=== PATIENT | male | born 1960 | race Caucasian/White ===

== ENCOUNTER 2022-09-18 06:00 | Outpatient (RCR) | payer OTHER, SELFPAY | END 2022-09-19 23:59 | disposition home or self-care (01) | LOC: TPT 06:00 | PROVIDERS: Visit Provider Nurse Practitioner Family | DX: Z73.89 Other problems related to life management difficulty (principal) | CPT/HCPCS: 97163 ==

== ENCOUNTER 2022-09-20 06:00 | Outpatient (RCR) | payer OTHER, SELFPAY | END 2022-10-20 23:59 | disposition home or self-care (01) | LOC: TPT 06:00 | PROVIDERS: Visit Provider Nurse Practitioner Family | DX: M25.511 Pain in right shoulder (principal); M54.2 Cervicalgia; Z73.89 Other problems related to life management difficulty | CPT/HCPCS: 97110; 97140; 97164 ==

== ENCOUNTER 2022-10-21 06:00 | Outpatient (RCR) | payer OTHER, SELFPAY | END 2022-11-20 23:59 | disposition home or self-care (01) | LOC: TPT 06:00 | PROVIDERS: Visit Provider Nurse Practitioner Family | DX: M25.511 Pain in right shoulder (principal); M54.2 Cervicalgia | CPT/HCPCS: 97110; 97140 ==

== ENCOUNTER 2022-11-21 06:00 | Outpatient (RCR) | payer OTHER, SELFPAY | END 2022-12-18 23:59 | disposition home or self-care (01) | LOC: TPT 06:00 | PROVIDERS: Visit Provider Nurse Practitioner Family | DX: M25.511 Pain in right shoulder (principal); M54.2 Cervicalgia | CPT/HCPCS: 97110; 97140 ==

== ENCOUNTER 2023-03-06 05:59 | Outpatient (CLI) | payer OTHER, SELFPAY ==
--- NOTE | 2023-03-06 | US_ITS ---
WS: [id number] RIGHT UPPER QUADRANT ULTRASOUND HISTORY: HEP C COMPARISON: None available. Liver: 16.2 cm in length. Moderate coarse echotexture throughout the liver. No mass identified. The e ntire liver is not well identified due to the attenuation and density of the liver. No bile duct dila tation. Portal Vein: Normal hepatopetal flow with monophasic waveform. Gallbladder: Normally distended gallbladder with no stones or wall thickening. CBD: 0.3 cm Pancreas: Portions of the head and tail are obscured. The body is negative. Right kidney: 9.4 cm in length. Normal size and echogenicity. No hydronephrosis or mass. Aorta and IVC: Unremarkable abdominal aorta and IVC. No ascites. US/US liver [id number] IMPRESSION: 1. Moderate coarse echogenicity throughout the liver. Hepatic steatosis versus hepatocellular disease such as cirrhosis. No mass. No bile duct dilatation. 2. Normal gallbladder. 3. Normal hepatopetal flow portal vein.
== END 2023-03-06 06:00 | disposition home or self-care (01) ==
PROVIDERS: PCP Nurse Practitioner Family; Visit Provider Nurse Practitioner Family
DX: K74.00 Hepatic fibrosis, unspecified (principal)
CPT/HCPCS: 76705